=== PATIENT | male | born 1980 | race Caucasian/White ===

== ENCOUNTER 2021-10-29 11:59 | Emergency (ER) | payer OTHER ==
[~2021-10-29] VITALS: Wt 158.8 kg
[2021-10-29] MEDS ORDERED: CYCLOBENZAPRINE10 MG PO (13:28)
[2021-10-29] MEDS ORDERED: TYLENOL325 M1 PO (13:28)
[2021-10-29] MEDS ORDERED: NAPROXEN250 MG PO (13:28)
== END 2021-10-29 13:30 | disposition home or self-care (01) ==
LOC: ED 11:59
DX: M54.50 Low back pain, unspecified (principal)